=== PATIENT | male | born 1990 | race Caucasian/White ===

== ENCOUNTER 2017-03-03 09:28 | Emergency (ER) | payer OTHER ==
--- NOTE | ~2017-03-03 | EKG ---
PATIENT: ANTOINE EAGLE UNIT #: [id number] Ventricular Rate: 66 BPM Atrial Rate: 66 BPM P-R Interval: 126 ms QRS Duration: 94 ms Q-T Interval: 426 ms QTC Calculation(Bezet): 446 ms P [place]on: 0 degrees Calculated R [place]: 71 degrees Calculated T [place]: 48 degrees Diagnosis Line: Normal sinus rhythm Diagnosis Line: Normal ECG Diagnosis Line: No previous ECGs available Diagnosis Line: Confirmed by MELL MURO MD ([id number]) on 03/04/2017 Diagnosis Line: 10:01:19 AM INTERPRETING MD: JINA PITT
--- NOTE | ~2017-03-03 | CT71 ---
[facility] A Service of [facility] & [facility] RADIOLOGY TEXT RESULTS PATIENT: ANTOINE EAGLE LOCATION: [facility] : [birth year] UNIT #: [id number] AGE: [address]: Dilip De Anda MD SEX: M ORDER DR: [id number] [facility] [address] [place], [place] [address] [id number] E MR#: [id number] Acc #: [id number] NAME: ANTOINE EAGLE. : 1990 SEX: M STUDY DATE/TIME: 03/03/2017 10:47 UNIT: [facility] ROOM: STUDY DESCRIPTION: CT Head Wo Contrast Attending Physician: Dilip De Anda M.D. Ordering Physician: Dilip De Anda M.D. Primary Care Physician: No Primary Care Physician MEDICAL IMAGING REPORT This report is preliminary unless electronic signature is present EXAM CT head 03/03/2017. HISTORY Syncope. Seizure today. Denies headache. Has had seizures before, but never evaluated. TECHNIQUE CT head performed skull base through vertex without intravenous contrast. This CT exam was performed with one or more of the following radiation dose reduction techniques: automatic exposure control, adjustment of mA and/or kV according to patient size, and iterative reconstruction. FINDINGS Brainstem unremarkable. Cerebellum and cerebral hemispheres show normal chu matter-white matter differentiation. No hemorrhage. No evidence of acute cortical ischemia. Midline structures nondisplaced. The basal ganglia are intact. The ventricles, cisterns, and sulci are normal in size and contour. In the anterior left middle cranial fossa, there is a CSF density structure measuring 1.8 cm x 3.4 cm. Appearance and location most consistent with arachnoid cyst. No suspicious mass lesion. The visualized intraorbital soft tissues are unremarkable. The visualized paranasal sinuses and mastoid air cells show mucosal thickening in bilateral mastoid air cells. This is mild in degree. There is a small air-fluid level in at least 1 inferior left mastoid air cell. No fracture. IMPRESSION 1. No clearly acute abnormality is seen in the brain. If the patient has ongoing neurologic symptoms, consider follow up imaging. In light of patient's stated history, consider follow up imaging with STS. [facility] A Service of [facility] & [facility] RADIOLOGY TEXT RESULTS PATIENT: ANTOINE EAGLE [id number] [birth year] UNIT #: [id number] AGE: [address]: Dilip De Anda MD SEX: M ORDER DR: dedicated seizure protocol MRI, if patient is a candidate. 2. CSF density structure, anterior left middle cranial fossa, measuring 1.8 cm x 3.4 cm, most consistent with arachnoid cyst. 3. Mild mucosal thickening and some bilateral inferior mastoid air cells with at least 1 small left mastoid air fluid level. Findings suggest bilateral mastoid inflammation with probable mild acute left mastoiditis. Correlate clinically. Dictated by... Abdifatah West M.D. THIS IS AN ELECTRONICALLY VERIFIED REPORT Abdifatah West M.D. at 03/03/2017 6:14 PM JEOVANY/pollo TD: 03/03/2017 13:47 JOB #: [id number] MEDICAL IMAGING REPORT Page 1 of 1 COPY
[2017-03-03 11:03] LABS: ALBUMIN SERUM 4.9 g/dL (3.5-5.0); BILIRUBIN, DIRECT 0.1 mg/dL (0.0-0.2); BILIRUBIN,INDIRECT 0.5 mg/dL (0.0-0.9); BILIRUBIN,TOTAL 0.6 mg/dL (0.2-2.0); BUN/CREATININE RATIO 23.75; CALCIUM SERUM 9.6 mg/dL (8.4-10.2); CREATININE SERUM 0.8 mg/dL (0.6-1.4); GLOM FILT RATE Estimated 122.5 mL/min (>60); POTASSIUM 3.8 mmol/L (3.5-5.1); PROTEIN TOTAL SERUM 7.6 g/dL (6.0-8.3)
[2017-03-03 12:40] LABS: AMPHETAMINE NEG (NEG); BARBITURATES NEG (NEG); BENZODIAZEPINES NEG (NEG); COCAINE NEG (NEG); MARIJUANA POS (NEG); OPIATES NEG (NEG); TRICYCLIC ANTIDEPRESSANTS NEG (NEG); U METHADONE NEG (NEG)
== END 2017-03-03 12:58 | disposition home or self-care (01) ==
LOC: CED 09:28
PROVIDERS: Emergency Medicine
DX: G40.909 Epilepsy, unspecified, not intractable, without status epilepticus (principal); F17.210 Nicotine dependence, cigarettes, uncomplicated
CPT/HCPCS: 36415; 70450; 80048; 80076; 80307; 82947; 93005; 99284